=== PATIENT | female | born 1945 | race Hispanic/Latino ===

== ENCOUNTER 2017-01-11 11:25 | Outpatient (CLI) | payer MEDICARE, OTHER ==
--- NOTE | 2017-01-11 15:38 | Mammography Report ---
BILATERAL MAMMOGRAM: FINDINGS: The breasts are almost entirely fat (<25% glandular). No mass, distortion, suspicious calcification, or skin change is seen. No interval change compared to prior examination in November 2015. CAD was utilized. IMPRESSION: Negative mammogram. There is no mammographic evidence of malignancy. RECOMMENDATION: Follow-up per ACS guidelines. BI-RADS CATEGORY: 1 = Negative ACR BI-RADS MAMMOGRAPHIC CODES: 0 = Needs additional imaging evaluation; 1 = Negative; 2 = Benign; 3 = Probably benign; 4 = Suspicious; 5 = Malignant; 6 = Known biopsy-proven malignancy COMMENT: 1. Dense breast tissue, i.e., adenosis, fibrocystic changes, etc., may obscure an underlying neoplasm. 2. Approximately 10% of cancers are not detected with mammography. 3. A negative mammography report should not delay biopsy if a clinically suspicious mass is present. COMMENT: Patient follow-up letters are generated in [employer]
== END 2017-01-11 11:26 | disposition home or self-care (01) ==
LOC: SPVWC 11:25
PROVIDERS: ATTEND Family Medicine
DX: Z12.31 Encounter for screening mammogram for malignant neoplasm of breast (principal)
CPT/HCPCS: 77067; G0202

== ENCOUNTER 2018-05-28 08:59 | Outpatient (CLI) | payer MEDICARE, OTHER ==
--- NOTE | 2018-05-28 10:08 | Mammography Report ---
Screening mammogram: There is a circumscribed nodule in the upper outer left breast anteriorly measuring approximately 6 mm. The remainder of the breast pattern is fatty replaced and unremarkable. Compared to prior exam in 2017 this nodule may have been present measuring approximately 4 mm. No other findings. CAD used. Impression: Left breast asymmetry. Recommendation: Spot compression imaging of the left breast and ultrasound is needed. BI-RADS CATEGORY: 0 = Needs additional imaging evaluation ACR BI-RADS MAMMOGRAPHIC CODES: 0 = Needs additional imaging evaluation; 1 = Negative; 2 = Benign; 3 = Probably benign; 4 = Suspicious; 5 = Malignant; 6 = Known biopsy-proven malignancy COMMENT: 1. Dense breast tissue, i.e., adenosis, fibrocystic changes, etc., may obscure an underlying neoplasm. 2. Approximately 10% of cancers are not detected with mammography. 3. A negative mammography report should not delay biopsy if a clinically suspicious mass is present.
== END 2018-05-28 09:00 | disposition home or self-care (01) ==
LOC: SPVWC 08:59
PROVIDERS: ATTEND Family Medicine
DX: Z12.31 Encounter for screening mammogram for malignant neoplasm of breast (principal)
CPT/HCPCS: 77067

== ENCOUNTER 2018-06-12 14:43 | Outpatient (CLI) | payer MEDICARE, OTHER ==
--- NOTE | 2018-06-12 15:38 | Mammography Report ---
LEFT DIGITAL DIAGNOSTIC MAMMOGRAM and LEFT BREAST ULTRASOUND: 06/12/18 14:43:00 CLINICAL: Recalled for asymmetry. COMPARISON:05/28/18 screening FINDINGS: An oval periareolar circumscribed density persists on spot magnification mammographic views. Ultrasound of the left breast demonstrated an oval anechoic smooth mass or cyst at 1 o'clock 1 cm from the nipple. It measures 5 x 2 x 5 mm and is not contiguous to the skin. Color Doppler demonstrates blood flow at its margin. IMPRESSION: A 5 mm anechoic left breast mass at 1 o'clock 1 cm from the nipple.Recommend ultrasound-guided needle aspiration/biopsy to exclude malignancy. BI-RADS CATEGORY: 4--Suspicious I discussed the findings and the recommendation for needle core aspiration/biopsy with the patient at the time of the examination. ACR BI-RADS MAMMOGRAPHIC CODES: 0 = Needs additional imaging evaluation; 1 = Negative; 2 = Benign; 3 = Probably benign; 4 = Suspicious; 5 = Malignant; 6 = Known biopsy-proven malignancy COMMENT: 1. Dense breast tissue, i.e., adenosis, fibrocystic changes, etc., may obscure an underlying neoplasm. 2. Approximately 10% of cancers are not detected with mammography. 3. A negative mammography report should not delay biopsy if a clinically suspicious mass is present. COMMENT: Patient follow-up letters are generated via our [employer] application.
== END 2018-06-12 14:44 | disposition home or self-care (01) ==
LOC: SPVWC 14:43
PROVIDERS: ATTEND Family Medicine
DX: N63.21 Unspecified lump in the left breast, upper outer quadrant (principal)

== ENCOUNTER 2018-06-26 10:01 | Outpatient (CLI) | payer MEDICARE, OTHER ==
--- NOTE | 2018-06-26 12:39 | Ultrasound Report ---
ULTRASOUND GUIDED CYST ASPIRATION LEFT BREAST: 06/26/18 CLINICAL: A 5 mm cyst versus anechoic solid mass at 1 o'clock 1 cm from the nipple. COMPARISON: 06/12/17 FINDINGS: The procedure was explained to the patient and informed consent was obtained. Ultrasound demonstrated the previously described superficial 5 mm oval anechoic lesion. The skin was cleansed with Betadine and anesthetized with 1% lidocaine. A 25-gauge needle was introduced into the lesion with ultrasound guidance and it showed complete collapse after puncture. No fluid was sent to the lab.The patient tolerated the procedure well and there were no apparent complications. IMPRESSION: Uncomplicated aspiration of a benign left breast cyst. Recommend routine mammographic screening in one year. BIRADS 2 - - Benign
--- NOTE | 2018-06-26 12:43 | Mammography Report ---
LEFT DIGITAL DIAGNOSTIC MAMMOGRAM : 06/26/18 CLINICAL: Immediately status post cyst aspiration. COMPARISON:06/12/18 FINDINGS: The previously described circumscribed 5 mm periareolar lesion is no longer identified. IMPRESSION: Successful aspiration of a 5 mm periareolar benign cyst and resolution of the mammographic density. COMMENT: Patient follow-up letters are generated by our [employer] application.
== END 2018-06-26 10:02 | disposition home or self-care (01) ==
LOC: SPVWC 10:01
PROVIDERS: ATTEND Family Medicine
DX: N60.02 Solitary cyst of left breast (principal)

== ENCOUNTER 2019-12-22 11:02 | Outpatient (CLI) | payer MEDICARE, OTHER ==
--- NOTE | 2019-12-23 08:30 | Mammography Report ---
DIGITAL SCREENING MAMMOGRAM WITH CAD, 12/22/2019 INDICATION: Routine screening mammography. TECHNIQUE: Digital bilateral 2D mammography was obtained in the craniocaudal and mediolateral obliq ue projections. This examination was interpreted with the benefit of Computer-Aided Detection analysi s. COMPARISON: 06/26/2018, 06/12/2018, 11/18/2015, 10/12/2013 FINDINGS: Breast Density: The breasts are almost entirely fatty. There is no evidence of dominant mass, suspicious calcifications or architectural distortion in eithe r breast. IMPRESSION: Follow up recommendation: Routine yearly BI-RADS Category 1: Negative. A "normal" or negative report should not discourage follow up or biopsy of a clinically significant f inding. A written summary of these findings will be mailed to the patient. The patient will be entered into a mammography reporting system which will generate a reminder letter for the patient's next appointmen t at the appropriate interval. The [employer] recommends yearly mammograms starting at age 40 and continuing as l kassidy as a woman is in good health. Breast MRI is recommended for women with an approximate 20-25% or greater lifetime risk of breast cancer, including women with a strong family history of breast or ova radha cancer or who have been treated for Hodgkin's disease. Signer Name: Unique Faye MD Signed: 12/23/2019 8:26 AM Workstation Name: [email or web address]
== END 2019-12-22 11:03 | disposition home or self-care (01) ==
LOC: SPVWC 11:02
PROVIDERS: ATTEND Family Medicine
DX: Z12.31 Encounter for screening mammogram for malignant neoplasm of breast (principal); N64.89 Other specified disorders of breast
CPT/HCPCS: 77067

== ENCOUNTER 2020-08-19 10:03 | Outpatient (CLI) | payer MEDICARE, OTHER ==
--- NOTE | 2020-08-19 12:52 | Mammography Report ---
DEXA BONE DENSITY SCAN INDICATION / CLINICAL INFORMATION: OSTEOPENIA. 75 years Female COMPARISON: None available. LUMBAR SPINE, L1-L4: - Bone mineral density (BMD) = 1.213 g/cm2. - T-score = 1.5 - Z-score = 3.9 Change (%) since most recent prior (if available): None available. RIGHT HIP, : - Bone mineral density (BMD) = 0.716 g/cm2. - T-score = -1.2 - Z-score = 0.9 Change (%) since most recent prior (if available): None available. IMPRESSION: 1. WHO Classification: Osteopenia. Fracture Risk: Increased. Note: 10-Year Fracture Risk (FRAX) not reported. This DEXA unit lacks FRAX functionality. BMD Reporting Guidelines (ISCD, 2015) BMD Reporting in Postmenopausal Women and in Men Age 50 and Older - T-scores are preferred. - The WHO densitometric classification is applicable. BMD Reporting in Females Prior to Menopause and in Males Younger Than Age 50 - Z-scores, not T-scores, are preferred. This is particularly important in children. - A Z-score of -2.0 or lower is defined as below the expected range for age, and a Z-score above -2.0 is within the expected range for age. - Osteoporosis cannot be diagnosed in men under age 50 on the basis of BMD alone. - The WHO diagnostic criteria may be applied to women in the menopausal transition. http://www.iscd.org/official-positions/4107-kxxs-xgjnrasy-positions-adult/ Signer Name: Anoop Keita MD Signed: 08/19/2020 12:48 PM Workstation Name: [email or web address]
== END 2020-08-19 10:04 | disposition home or self-care (01) ==
LOC: SPVWC 10:03
PROVIDERS: ATTEND Internal Medicine
DX: Z13.820 Encounter for screening for osteoporosis (principal); M85.88 Other specified disorders of bone density and structure, other site
CPT/HCPCS: 77080